=== PATIENT | male | born 1985 | race Hispanic/Latino ===

== ENCOUNTER 2017-09-17 23:12 | Emergency (ER) | payer SELFPAY ==
[2017-09-17 23:17] VITALS: BMI 25.0
[2017-09-17 23:25] VITALS: TEMP 98.2
--- NOTE | 2017-09-17 23:39 | ED PDOC ---
Arrival/HPI <Yonatan Edge - Last Filed: 09/18/17 00:28> - General Historian: Patient - History of Present Illness Time/Duration: Prior to Arrival <Shawn Huggins - Last Filed: 09/18/17 05:10> - General Chief Complaint: Substance Abuse Time Seen by Provider: 09/17/17 23:14 - History of Present Illness Narrative History of Present Illness (Text): 09/17/17 23:35 This is a 32 yo male, hx of cocaine abuse, presenting with chief complaint of syncope. Patient was at work in [employer] today. He works as a contractor. He got off work at night and was smoking crack cocaine, 2-3 hits. He says a coworker gave him some. He says he has been using cocaine off and on for 1 year. He says he was taking an uber ride to get back home. He thinks was just getting home, but the next thing he knows is he is in an ambulance. He was told he had a syncopal episode. Denies ever happened before. Pt is current asymptomatic and "feels fine." PMH: cocaine, heroin abuse PSH: None Allergies: NKDA FH: Mother- breast cancer Home meds: none Social hx: current smoker, 3/4 ppd. social drinker. uses cocaine currently. past hx of heroin use. works as a contractor. (Shawn Huggins) Past Medical History - Provider Review Nursing Documentation Reviewed: Yes - Travel History Have you recently traveled outside [place] w/in the past 3 mons?: No - Infectious Disease Hx of Infectious Diseases: None - Tetanus Immunization Tetanus Immunization: Unknown - Psychiatric Hx Substance Use: Yes - Anesthesia Hx Anesthesia: No <Shawn Huggins - Last Filed: 09/18/17 05:10> Family/Social History - Physician Review Nursing Documentation Reviewed: Yes Family/Social History: Neoplasm/Cancer Smoking Status: Heavy Smoker > 10 Cigarettes Daily Hx Alcohol Use: Yes Frequency of alcohol use: Socially Hx Substance Use: Yes Substance used: marijuana, cocaine Route: Smoking/Inhalation Hx Substance Use Treatment: No <Shawn Huggins - Last Filed: 09/18/17 05:10> Allergies/Home Meds <Yonatan Edge - Last Filed: 09/18/17 00:28> <Shawn Huggins - Last Filed: 09/18/17 05:10> Allergies/Adverse Reactions: Allergies No Known Allergies Allergy (Verified 09/17/17 23:17) Home Medications: Home Meds Medication Instructions Recorded Confirmed No Known Home Med 09/17/17 09/17/17 Review of Systems - Review of Systems Constitutional: absent: Fatigue, Weight Change Eyes: absent: Vision Changes, Photophobia ENT: absent: Hearing Changes, Tinnitus Respiratory: absent: SOB, Cough Cardiovascular: Syncope Gastrointestinal: absent: Abdominal Pain, Stool Changes Genitourinary Male: absent: Dysuria, Frequency Musculoskeletal: absent: Arthralgias, Back Pain Skin: absent: Rash, Pruritis Neurological: absent: Headache, Dizziness Endocrine: absent: Diaphoresis, Polyuria Hemo/Lymphatic: absent: Adenopathy, Easy Bleeding Psychiatric: absent: Anxiety, Depression <Shawn Huggins - Last Filed: 09/18/17 05:10> Physical Exam Vital Signs Reviewed: Yes Appearance: Positive for: Well-Appearing, Non-Toxic Mental Status: Positive for: Alert and Oriented X 3 - Systems Exam Head: Present: Atraumatic, Normocephalic Extroacular Muscles: Present: EOMI Mouth: Present: Moist Mucous Membranes Pharnyx: Present: Normal Neck: Present: Normal Range of Motion Respiratory/Chest: Present: Clear to Auscultation. No: Respiratory Distress Cardiovascular: Present: Normal S1, S2, Tachycardic Abdomen: Present: Normal Bowel Sounds. No: Tenderness, Distention, Peritoneal Signs Upper Extremity: Present: Normal Inspection. No: Cyanosis, Edema Lower Extremity: Present: Normal Inspection. No: Edema Neurological: Present: CN II-XII Intact, Speech Normal Skin: Present: Warm, Dry Psychiatric: Present: Alert, Oriented x 3, Normal Insight, Normal Concentration <Shawn Huggins - Last Filed: 09/18/17 05:10> Vital Signs Temp Pulse Resp BP Pulse Ox 09/18/17 01:00 91 H 15 128/57 L 95 09/17/17 23:24 98.2 F 107 H 14 133/85 92 L Medical Decision Making - Lab Interpretations I have reviewed the lab results: Yes - EKG Interpretation Interpreted by ED Physician: Yes Type: 12 lead EKG <Yonatan Edge - Last Filed: 09/18/17 00:28> <Shawn Huggins - Last Filed: 09/18/17 05:10> ED Course and Treatment: Impression: Pt seen and evaluated with esthetician and manager [facility]. Pt, whose past medical history includes cocaine abuse, presented s/p syncopal epiosde tonight. Pt notes he smoked crack cocaine tonight. Aware and agree with HPI, clinical findings, plan , and management. Plan: -- CT Head w/o contrast -- EKG -- Labs, troponin -- Urine drug screen -- Reassess and disposition (Yonatan Edge) - Lab Interpretations Lab Results: 09/17/17 23:35 09/17/17 23:35 Lab Results 09/17/17 23:53: Urine Opiates Screen Positive H, Urine Methadone Screen Negative , Ur Barbiturates Screen Negative, Ur Phencyclidine Scrn Negative, Ur Amphetamines Screen Negative, U Benzodiazepines Scrn Negative, U Oth Cocaine Metabols Positive H, U Cannabinoids Screen Positive H 09/17/17 23:35: Acetaminophen < 10.0 L 09/17/17 23:35: Sodium 140, Potassium 3.9, Chloride 101, Carbon Dioxide 29, Anion Gap 15, BUN 14, Creatinine 0.8, Est GFR ( Amer) > 60, Est GFR (Non- Af Amer) > 60, Random Glucose 114 H, Calcium 9.5, Magnesium 2.2, Total Bilirubin 0.8, AST 50, ALT 62 H, Alkaline Phosphatase 55, Troponin I < 0.01, Total Protein 8.4 H, Albumin 4.9 H, Globulin 3.5, Albumin/Globulin Ratio 1.4 09/17/17 23:35: WBC 8.0, RBC 4.60, Hgb 13.9 L, Hct 39.9 L, MCV 86.7, MCH 30.2, MCHC 34.8, RDW 12.5, Plt Count 248, MPV 9.6, Gran % 71.1 H, Lymph % (Auto) 17.4 L, [place] % (Auto) 10.0 H, Eos % (Auto) 1.1 L, Baso % (Auto) 0.4, Gran # 5.67, Lymph # 1.4, [place] # 0.8 H, Eos # 0.1, Baso # 0.03 - RAD Interpretation Radiology Orders: 09/17/17 23:28 HEAD W/O CONTRAST [CT] Stat Disposition/Present on Arrival <Yonatan Edge - Last Filed: 09/18/17 00:28> - Present on Arrival Any Indicators Present on Arrival: No History of DVT/PE: No History of Uncontrolled Diabetes: No Urinary Catheter: No History of Decub. Ulcer: No History Surgical Site Infection Following: None - Disposition Have Diagnosis and Disposition been Completed?: Yes Disposition Time: 03:00 <Shawn Huggins - Last Filed: 09/18/17 05:10> - Disposition Diagnosis: Substance abuse Disposition: HOME/ ROUTINE Condition: STABLE Discharge Instructions (ExitCare): Polysubstance Abuse (ED) Referrals: PCP,NO [Primary Care Provider] - Follow up with primary Forms: [employer] (Hungarian)
[2017-09-17 23:52] LABS: BASO # 0.03 K/mm3 (0.0-2.0); BASO % 0.4 % (0.0-3.0); EOS # 0.1 (0.0-0.7); EOS % 1.1 % (1.5-5.0); GRAN # 5.67 (1.4-6.5); GRAN % 71.1 % (50.0-68.0); HEMATOCRIT 39.9 % (42.0-52.0); LYMPH # 1.4 (1.2-3.4); LYMPH % 17.4 % (22.0-35.0); MEAN CELL VOLUME 86.7 fl (80.0-105.0); MEAN CORPUSCULAR HEMOGLOBIN 30.2 pg (25.0-35.0); MEAN CORPUSCULAR HGB CONC 34.8 g/dl (31.0-37.0); MEAN PLATELET VOLUME 9.6 fl (7.0-11.0); MONO # 0.8 (0.1-0.6); RED CELL DISTRIBUTION WIDTH 12.5 % (11.5-14.5)
[2017-09-18 00:38] LABS: ALB/GLOB RATIO 1.4 (1.1-1.8); ALKALINE PHOSPHATASE 55 U/L (38-126); ALT/SGPT 62 U/L (7-56); AST/SGOT 50 U/L (17-59); BILIRUBIN,TOTAL 0.8 mg/dL (0.2-1.3); BLOOD UREA NITROGEN 14 mg/dL (7-21); CALCIUM 9.5 mg/dL (8.4-10.5); CARBON DIOXIDE 29 mmol/L (21-33); CHLORIDE 101 mmol/L (98-107); GFR AFRICAN-AMERICAN > 60; GLUCOSE,RANDOM 114 mg/dL (70-110); MAGNESIUM 2.2 mg/dL (1.7-2.2); POTASSIUM 3.9 mmol/L (3.6-5.0); SODIUM 140 mmol/L (132-148); TOTAL PROTEIN 8.4 g/dL (5.8-8.3)
[2017-09-18 00:49] LABS: TROPONIN I < 0.01 ng/mL
--- NOTE | 2017-09-18 00:59 | CT ---
EXAM: CT Head Without Intravenous Contrast CLINICAL HISTORY: 32 years old, male; Signs and symptoms; Syncope and collapse; Additional info: Cocaine use; Syncope TECHNIQUE: Axial computed tomography images of the head/brain without intravenous contrast. All CT scans at this facility use one or more dose reduction techniques, viz.: automated exposure control; ma/kV adjustment per patient size (including targeted exams where dose is matched to indication; i.e. head); or iterative reconstruction technique. COMPARISON: No relevant prior studies available. FINDINGS: Brain: No intracranial hemorrhage. No mass. No definite edema. Ventricles: No hydrocephalus. Bones/joints: No acute fracture. Soft tissues: Unremarkable. Sinuses: Mild mucosal thickening/fluid of LEFT frontal sinus. Scattered mild to moderate thickening of ethmoid sinuses. Scattered minimal mucosal thickening of remaining sinuses. Mastoid air cells: No mastoid effusion. Orbits: Unremarkable as visualized. IMPRESSION: 1. No acute intracranial abnormality. 2. Sinus disease.
[2017-09-18 01:00] VITALS: BP 128/57; PULSE 91; RESP 15; O2SAT 95
--- NOTE | 2017-09-18 09:23 | CARD ---
APPROVED REPORT EKG Measurement Heart [id number] <Conclusion> Sinus tachycardia IRBBB St elevations c/w early repolarization.
== END 2017-09-18 01:16 | disposition home or self-care (01) ==
LOC: ED 23:12
DX: F19.10 Other psychoactive substance abuse, uncomplicated (principal)
CPT/HCPCS: 70450; 80053; 83735; 84484; 85025; 93005; 99284; G0480

== ENCOUNTER 2017-11-05 22:09 | Emergency (ER) | payer SELFPAY ==
[2017-11-05 22:39] VITALS: BMI 25.8
[2017-11-05 23:26] LABS: BASO # 0.01 K/mm3 (0.0-2.0); EOS # 0.1 (0.0-0.7); EOS % 0.2 % (1.5-5.0); GRAN # 17.02 (1.4-6.5); GRAN % 83.4 % (50.0-68.0); HEMOGLOBIN 14.2 g/dL (14.0-18.0); LYMPH # 0.9 (1.2-3.4); LYMPH % 4.6 % (22.0-35.0); MEAN CELL VOLUME 88.7 fl (80.0-105.0); MEAN CORPUSCULAR HEMOGLOBIN 30.4 pg (25.0-35.0); MEAN CORPUSCULAR HGB CONC 34.3 g/dl (31.0-37.0); MEAN PLATELET VOLUME 9.2 fl (7.0-11.0); MONO # 2.4 (0.1-0.6); MONO % 11.8 % (1.0-6.0); PLATELET COUNT 220 10^3/uL (120.0-450.0); RBC 4.67 10^6/uL (3.5-6.1); RED CELL DISTRIBUTION WIDTH 12.6 % (11.5-14.5); WHITE BLOOD COUNT 20.4 10^3/ul (4.5-11.0)
[2017-11-05 23:45] LABS: BLOOD UREA NITROGEN 19 mg/dL (7-21); GFR AFRICAN-AMERICAN > 60; GFR NON-AFRICAN AMERICAN > 60
[2017-11-05 23:46] LABS: ALBUMIN 5.1 g/dL (3.0-4.8); ALT/SGPT 35 U/L (7-56); AST/SGOT 41 U/L (17-59); CALCIUM 9.7 mg/dL (8.4-10.5)
[2017-11-05 23:50] VITALS: TEMP 98.1
[2017-11-05] MEDS ORDERED: Sodium Chloride 0.9% 1,000 ML IV STA (23:52)
[2017-11-05 23:53] LABS: ALB/GLOB RATIO 1.5 (1.1-1.8)
[2017-11-05 23:56] LABS: TROPONIN I < 0.01 ng/mL
--- NOTE | 2017-11-06 00:12 | ED PDOC ---
Arrival/HPI <BanHarsha - Last Filed: 11/06/17 01:40> - General Historian: Patient <Jyoti Graff Mark - Last Filed: 11/06/17 02:17> - General Chief Complaint: Substance Abuse Time Seen by Provider: 11/05/17 22:36 - History of Present Illness Narrative History of Present Illness (Text): 11/06/17 02:14 32yo male with history of cocaine abuse biba for drug overdose. The friend who was by the bedside states he found patient unconscious at home. Patient became AAO x3 after getting Narcan on the field, by the EMS. He admits taking cocaine. States it was cocaine from a friend that came to visit him. States he currently feels good in the ED. He denies any somatic complaint, headache, dizziness, visual change, nausea, vomiting, any other complaint. (Jyoti Graff A) Past Medical History - Provider Review Nursing Documentation Reviewed: Yes - Infectious Disease Hx of Infectious Diseases: None - Tetanus Immunization Tetanus Immunization: Unknown - Psychiatric Hx Substance Use: Yes - Anesthesia Hx Anesthesia: No Hx Anesthesia Reactions: No Hx Malignant Hyperthermia: No <Jyoti Graff Mark - Last Filed: 11/06/17 02:17> Family/Social History - Physician Review Nursing Documentation Reviewed: Yes Family/Social History: Unknown Family HX Smoking Status: Heavy Smoker > 10 Cigarettes Daily Hx Alcohol Use: Yes Hx Substance Use: Yes Substance used: marijuana, cocaine Hx Substance Use Treatment: No <Jyoti Graff A - Last Filed: 11/06/17 02:17> Allergies/Home Meds <BanHarsha - Last Filed: 11/06/17 01:40> <Jyoti Graff A - Last Filed: 11/06/17 02:17> Allergies/Adverse Reactions: Allergies No Known Allergies Allergy (Verified 11/06/17 00:15) Home Medications: Home Meds Medication Instructions Recorded Confirmed No Known Home Med 09/17/17 11/06/17 Review of Systems - Physician Review All systems were reviewed & negative as marked: Yes - Review of Systems Constitutional: Normal Eyes: Normal ENT: Normal Respiratory: Normal Cardiovascular: Normal Gastrointestinal: Normal Genitourinary Male: Normal Musculoskeletal: Normal Skin: Normal Neurological: Normal Endocrine: Normal Hemo/Lymphatic: Normal Psychiatric: Normal <Jyoti Graff - Last Filed: 11/06/17 02:17> Physical Exam Vital Signs Reviewed: Yes Temperature: Afebrile Blood Pressure: Normal Pulse: Regular Respiratory Rate: Normal Appearance: Positive for: Well-Appearing, Non-Toxic, Comfortable Pain Distress: None Mental Status: Positive for: Alert and Oriented X 3 - Systems Exam Head: Present: Atraumatic, Normocephalic Pupils: Present: PERRL Extroacular Muscles: Present: EOMI Conjunctiva: Present: Normal Mouth: Present: Moist Mucous Membranes Neck: Present: Normal Range of Motion Respiratory/Chest: Present: Clear to Auscultation, Good Air Exchange. No: Respiratory Distress, Accessory Muscle Use Cardiovascular: Present: Regular Rate and Rhythm, Normal S1, S2. No: Murmurs Abdomen: Present: Normal Bowel Sounds. No: Tenderness, Distention, Peritoneal Signs Back: Present: Normal Inspection Upper Extremity: Present: Normal Inspection. No: Cyanosis, Edema Lower Extremity: Present: Normal Inspection. No: Edema Neurological: Present: GCS=15, CN II-XII Intact, Speech Normal Skin: Present: Warm, Dry, Normal Color. No: Rashes Psychiatric: Present: Alert, Oriented x 3, Normal Insight, Normal Concentration <Jyoti Graff A - Last Filed: 11/06/17 02:17> Vital Signs Temp Pulse Resp BP Pulse Ox 11/05/17 23:49 98.1 F 85 16 115/71 97 11/05/17 23:00 93 H 18 106/70 99 Medical Decision Making <Harsha Cevallos - Last Filed: 11/06/17 01:40> <Jyoti Graff - Last Filed: 11/06/17 02:17> ED Course and Treatment: 11/06/17 02:11 PT presented for stated history. He was AAO x3 and in no distress. Hemodynamically stable. Leukocytosis was noted which is likely secondary to the drug abuse. LDH and CPK was WNL. PT was noted drinking water and having conversation with his family members without any distress. He requested to be DC home and was DC. Referred to his PMD. (Jyoti Graff) - Lab Interpretations Lab Results: 11/05/17 11:10 11/05/17 11:10 Lab Results 11/06/17 00:15: Total Creatine Kinase 160 11/06/17 00:00: Urine Color Yellow, Urine Appearance Clear, Urine pH 6.0, Ur Specific [place] 1.025, Urine Protein 30 H, Urine Glucose (UA) >=1000, Urine Ketones 15 H, Urine Blood Negative, Urine Nitrate Negative, Urine Bilirubin Negative, Urine Urobilinogen 0.2, Ur Leukocyte Esterase Negative, Urine RBC 0 - 2, Urine WBC 0 - 2, Ur Epithelial Cells 0 - 2, Urine Bacteria Few 11/05/17 22:38: Urine Opiates Screen Positive H, Urine Methadone Screen No result, Ur Barbiturates Screen Negative, Ur Phencyclidine Scrn Negative, Ur Amphetamines Screen Negative, U Benzodiazepines Scrn Negative, U Oth Cocaine Metabols Positive H, U Cannabinoids Screen Negative 11/05/17 11:10: Sodium 145, Potassium 4.3, Chloride 103, Carbon Dioxide 31, Anion Gap 16, BUN 19, Creatinine 0.9, Est GFR ( Amer) > 60, Est GFR (Non- Af Amer) > 60, Random Glucose 103, Calcium 9.7, Total Bilirubin 0.8, AST 41, ALT 35, Alkaline Phosphatase 50, Lactate Dehydrogenase 444, Total Creatine Kinase 160, Troponin I < 0.01, Total Protein 8.6 H, Albumin 5.1 H, Globulin 3.5 , Albumin/Globulin Ratio 1.5 11/05/17 11:10: WBC 20.4 H D, RBC 4.67, Hgb 14.2, Hct 41.4 L, MCV 88.7, MCH 30.4 , MCHC 34.3, RDW 12.6, Plt Count 220, MPV 9.2, Gran % 83.4 H, Lymph % (Auto) 4.6 L, [place] % (Auto) 11.8 H, Eos % (Auto) 0.2 L, Baso % (Auto) 0.0, Gran # 17.02 H, Lymph # 0.9 L, [place] # 2.4 H, Eos # 0.1, Baso # 0.01, Neutrophils % ( Manual) Pending, Lymphocytes % (Manual) Pending, Monocytes % (Manual) Pending - RAD Interpretation Radiology Orders: 11/05/17 23:53 HEAD W/O CONTRAST [CT] Stat - Medication Orders Current Medication Orders: Discontinued Medications Sodium Chloride (Sodium Chloride 0.9%) 1,000 mls @ 999 mls/hr IV .Q1H1M STA Stop: 11/06/17 00:52 Last Admin: 11/06/17 00:05 Dose: 999 mls/hr eMAR Start Stop Document 11/06/17 00:05 ND (Rec: 11/06/17 00:05 ND [facility] [place]-[id number]) Intravenous Solution Start Date 11/06/17 Start Time 00:05 End Date 11/06/17 End time 01:05 Total Infusion Time 60 - PA / CHIEF [employer] OFFICER / Resident Statement / has reviewed & agrees with the documentation as recorded. <Harsha Cevallos - Last Filed: 11/06/17 01:40> Disposition/Present on Arrival <Harsha Cevallos - Last Filed: 11/06/17 01:40> - Present on Arrival Any Indicators Present on Arrival: No History of DVT/PE: No History of Uncontrolled Diabetes: No Urinary Catheter: No History of Decub. Ulcer: No History Surgical Site Infection Following: None - Disposition Have Diagnosis and Disposition been Completed?: Yes Disposition Time: 02:10 Patient Plan: Discharge <Jyoti Graff - Last Filed: 11/06/17 02:17> - Disposition Diagnosis: Drug overdose, Leukocytosis Disposition: HOME/ ROUTINE Condition: STABLE Discharge Instructions (ExitCare): Adult Overdose (ED) Additional Instructions: Stop using drug Follow up with your doctor Return to ED or any new or worsening symptoms Referrals: Nia Mata, [Primary Care Provider] - Follow up with primary [facility] – [place] [Outside] - Follow up with primary Forms: [employer] (Northern Irish)
[2017-11-06 00:14] LABS: BARBITURATES, UR NEGATIVE (NEGATIVE); BENZODIAZEPINES, UR NEGATIVE (NEGATIVE); OPIATES, UR POSITIVE (NEGATIVE); PHENCYCLIDINE, UR NEGATIVE (NEGATIVE)
[2017-11-06 00:16] LABS: URINE BILIRUBIN NEGATIVE (NEGATIVE); URINE BLOOD NEGATIVE (NEGATIVE); URINE GLUCOSE (UA) >=1000 mg/dL (NEGATIVE); URINE LEUKOCYTE ESTERASE NEGATIVE Leu/uL (NEGATIVE); URINE NITRATE NEGATIVE (NEGATIVE); URINE PROTEIN 30 mg/dL (<30 mg/dL); URINE UROBILINOGEN 0.2 E.U./dL (<1 E.U./dL)
[2017-11-06 00:23] LABS: URINE APPEARANCE CLEAR (CLEAR); URINE COLOR YELLOW (YELLOW)
[2017-11-06 00:56] LABS: URINE BACTERIA FEW (NEG); URINE EPITHELIAL CELLS 0 - 2 /hpf (0-5); URINE RBC 0 - 2 /hpf (0-2); URINE WBC 0 - 2 /hpf (0-6)
[2017-11-06 02:30] VITALS: BP 117/75; PULSE 97; RESP 20; O2SAT 99
[2017-11-06 03:28] LABS: BAND 6 % (0-2); LYMPHOCYTE 3 % (22.0-35.0); MONOCYTE 8 % (1.0-6.0); NEUTROPHIL 81 % (50.0-70.0)
[2017-11-06 03:29] LABS: METAMYELOCYTE 1 %; MYELOCYTE 1 %; PLATELET ESTIMATE NORMAL (NORMAL)
== END 2017-11-06 02:30 | disposition home or self-care (01) ==
LOC: ED 22:09
DX: D72.829 Elevated white blood cell count, unspecified (principal); T50.991A Poisoning by other drugs, medicaments and biological substances, accidental (unintentional), initial encounter; Y92.89 Other specified places as the place of occurrence of the external cause
CPT/HCPCS: 80053; 81001; 82550; 83615; 84484; 85025; 87040; 96360; 99285; G0480; J7040